=== PATIENT | female | born 1945 | race Caucasian/White ===

== ENCOUNTER → 2017-10-28 | Outpatient (CLI) | payer MEDICARE, BC ==
--- NOTE | 2017-10-28 12:43 | Diagnostic Imaging Report ---
Thyroid ultrasound History: Nontoxic single thyroid nodule Comparison: None Findings: The thyroid echotexture is normal. Vascularity is normal. The right lobe measures 4.5 x 1.5 x 1.5 cm. The left lobe measures 4.6 x 1.1 x 1.4 cm. The isthmus measures 0.4 cm. Nodules (measurements are AP, transverse, craniocaudal): Right Lobe: No cystic mass or discrete solid nodule identified. Left Lobe: In the mid left lobe, there is a 1.6 x 0.7 x 1.3 cm well circumscribed heterogeneously hypoechoic, mixed-solid cystic nodule with internal punctate calcifications and peripheral doppler flow. The nodule is wider than tall. Isthmus: No cystic mass or discrete solid nodule identified. Lymph Nodes: No cervical lymph nodes are identified. Parathyroids: Not visualized. IMPRESSION: A 1.6 cm left mid thyroid nodule is moderately suspicious (TI-RADS 4). An FNA is suggested for further evaluation. ACR glossary of thyroid rads TI-RADS 1: No focal lesion. TI-RADS 2: Not suspicious. TI-RADS 3: Mildly suspicious (recommend FNA is greater than or equal to 2.5 cm; follow-up at 1, 3, and 5 years if greater than or equal to 1.5 cm) TI-RADS 4: Moderately Suspicious (recommend FNA is greater than or equal to 1.5 cm; follow-up at 1, 2, 3, and 5 years) TI-RADS 5: Highly suspicious (recommend FNA is greater than or equal to 10 mm) TI-RADS 6: Biopsy-proven malignancy Signed by: Dr. Lydia Stern MD on 10/28/2017 12:39 PM
--- NOTE | 2017-10-28 12:53 | Diagnostic Imaging Report ---
EXAM: Renal Ultrasound INDICATION: Hematuria COMPARISON: None TECHNIQUE: Transverse and longitudinal images of the kidneys and bladder were obtained. FINDINGS: Right Kidney: Length: 10.4 x 4.7 x 4.3 cm Appearance: Normal echogenicity. Collecting system: No hydronephrosis Stones: None. Cyst/Mass: There is an anechoic cyst in the right kidney inferior pole laterally measuring up to 3.7 cm. There is an additional anechoic cyst in the right kidney mid pole medially measuring up to 1.8 cm. Left Kidney: Length: 11.3 x 5 x 5.5 cm Appearance: Normal echogenicity. Collecting system: No hydronephrosis Stones: None. Cyst/Mass: There is an anechoic cyst in the left kidney mid pole medially measuring up to 2.3 cm and an anechoic cyst in the left kidney inferior pole measuring up to 1.1 cm. Bladder: Unremarkable in appearance. Bilateral ureteral jets are visualized. IMPRESSION: Bilateral simple renal cysts. Otherwise unremarkable renal ultrasound. Signed by: Dr. Lydia Stern MD on 10/28/2017 12:50 PM
== END ==
LOC: US 09:16
PROVIDERS: ATTEND Family Medicine
DX: Z12.31 Encounter for screening mammogram for malignant neoplasm of breast (principal); E04.1 Nontoxic single thyroid nodule; R31.9 Hematuria, unspecified
CPT/HCPCS: 76536; 76770; 77067

== ENCOUNTER → 2018-02-23 | Outpatient (CLI) | payer MEDICARE, BC ==
--- NOTE | 2018-02-23 09:41 | Diagnostic Imaging Report ---
ADDENDUM #1 ADDENDUM: Dose modulation, iterative reconstruction, and/or weight based adjustment of the mA/kV was utilized to reduce the radiation dose to as low as reasonably achievable. Signed by: Dr. Lydia Stern MD on 02/23/2018 5:24 PM ORIGINAL REPORT EXAM: CT Abdomen and Pelvis WITHOUT contrast INDICATION: Hematuria COMPARISON: None. TECHNIQUE: Abdomen and pelvis were scanned utilizing a multidetector helical scanner from the lung base to the pubic symphysis without administration of IV contrast. Absence of intravenous contrast decreases sensitivity for detection of focal lesions and vascular pathology. Coronal and sagittal reformations were obtained. Routine protocol was performed. RADIATION DOSE: Total DLP: 591.2 mGy*cm COMPLICATIONS: None FINDINGS: LINES and TUBES: None. LOWER THORAX: Patchy dependent atelectasis. Right-sided fat-containing Bochdalek hernia. HEPATOBILIARY: Simple appearing hepatic cysts. Other subcentimeter hepatic hypodensities are too small to characterize, but likely represent cysts. No biliary ductal dilation. GALLBLADDER: No radio-opaque stones or sludge. No wall thickening. SPLEEN: No splenomegaly. PANCREAS: No focal masses or ductal dilatation. ADRENALS: No adrenal nodules KIDNEYS/URETERS: No hydronephrosis. No solid mass lesions. No stones. Bilateral simple appearing renal cysts, largest measuring up to 3.4 cm in the right lower pole. GI TRACT: No abnormal distention, wall thickening, or evidence of bowel obstruction. There is scattered colonic diverticulosis without CT evidence of diverticulitis. Appendix is normal. PELVIC ORGANS/BLADDER: Unremarkable. LYMPH NODES: No lymphadenopathy. VESSELS: There are extensive atherosclerotic calcifications in the aorta and branch vessels. PERITONEUM / RETROPERITONEUM: No free air or fluid. BONES/SOFT TISSUES: Degenerative changes of the visualized spine without evidence of suspicious lytic or blastic lesion. IMPRESSION: No evidence of acute abnormality in the abdomen or pelvis. No evidence of renal stone. Bilateral simple appearing renal cysts. Signed by: Dr. Lydia Stern MD on 02/23/2018 9:37 AM
== END ==
LOC: CT 08:19
PROVIDERS: ATTEND Family Medicine
DX: R31.9 Hematuria, unspecified (principal)
CPT/HCPCS: 74176

== ENCOUNTER → 2018-09-09 | Outpatient (CLI) | payer MEDICARE, BC ==
--- NOTE | 2018-09-12 09:02 | Diagnostic Imaging Report ---
#[id number] - MGDXBIL #BILATERAL DIGITAL DIAGNOSTIC MAMMOGRAM WITH CAD: 09/09/2018 Comparison is made to exam dated: 10/28/2017 mammogram - [facility]. Current study contains 6 films. There are scattered fibroglandular elements in both breasts. Current study was also evaluated with a Computer Aided Detection (CAD) system. There are benign calcifications in both breasts. There is a stable popcorn calcification in the right breast. There are post operative findings in the right breast with a scar marker present and clips in the axilla. No significant masses, calcifications, or other findings are seen in either breast. IMPRESSION: BENIGN There is no mammographic evidence of malignancy. A 1 year screening mammogram is recommended. The patient will be notified by letter of the results. JULIETTE SYKES M.D. ct/:09/09/2018 11:10:20 Timber Estimator: Nazia BERTRAND(Tayo)(Kyleigh), [facility] letter sent: Normal Exam Mammogram BI-RADS: 2 Benign
== END ==
LOC: MAMMO 09:57
PROVIDERS: ATTEND Family Medicine
DX: Z85.3 Personal history of malignant neoplasm of breast (principal)
CPT/HCPCS: 77066

== ENCOUNTER 2018-09-13 10:16 | Emergency (ER) | payer MEDICARE, BC ==
[~2018-09-13] VITALS: Ht 160 cm; Wt 75.3 kg
--- OUTSIDE RECORDS SUMMARY | 2018-09-13 10:18 | XMS REPORT ---
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 Allergies, Adverse Reactions, Alerts This patient has no known allergies or adverse reactions. Medications This patient has no known medications. Results Test Description Test Time Test Comments Text Results Atomic Results Result Comments MAMMOGRAPHY DIGITAL DX BILAT 2018-09-09 10:59:00 [place] [address] Patient Name: EDELMIRA MANRIQUEZ MR #: [id number] : 1945 Age/Sex: 73/F Req #: [id number] Adm Physician: Ordered by: NATHANIEL SARAVIA MD Report #: [id number] Location: MAMMO Room/Bed: Procedure: [id number] MG/MAMMOGRAPHY DIGITAL DX BILAT Exam Date: 09/09/18 Exam Time: 1013 REPORT STATUS: Signed #[id number] - MGDXBIL #BILATERAL DIGITAL DIAGNOSTIC MAMMOGRAM WITH CAD: 09/09/2018 Comparison is made to exam dated: 10/28/2017 mammogram - [facility]. Current study contains 6 films. There are scattered fibroglandular elements in both breasts. Current study was also evaluated with a Computer Aided Detection (CAD) system. There are benign calcifications in both breasts. There is a stable popcorn calcification in the right breast. There are post operative findings in the right breast with a scar marker present and clips in the axilla. No significant masses, calcifications, or other findings are seen in either breast. IMPRESSION: BENIGN There is no mammographic evidence of malignancy. A 1 year screening mammogram is recommended. The patient will be notified by letter of the results. JULIETTE SYKES M.D. ct/:09/09/2018 11:10:20 Associate Director Regulatory Affairs: Nazia HERNANDEZ)(Kyleigh), [facility] letter sent: Normal Exam Mammogram BI-RADS: 2 Benign Dictated By: JULIETTE SYKES MD 111 Transcribed By: MARIO ALBERTO on 09/09/18 111 COPY TO: NATHANIEL SARAVIA MD CT ABDOMEN/PELVIS WO 2018-02-23 09:20:00 [place] [address] Patient Name: EDELMIRA MANRIQUEZ MR #: [id number] : 1945 Age/Sex: 73/F Req #: [id number] Adm Physician: Ordered by: NATHANIEL SARAVIA MD Report #: [id number] Location: CT Room/Bed: Procedure: [id number] CT/CT ABDOMEN/PELVIS WO Exam Date: 02/23/18 Exam Time: 819 REPORT STATUS: Signed ADDENDUM #1 ADDENDUM: Dose modulation, iterative reconstruction, and/or weight based adjustment of the mA/kV was utilized to reduce the radiation dose to as low as reasonably achievable. Signed by: Dr. Rosemarie Rodriguez MD on 02/23/2018 5:24 PM ORIGINAL REPORT EXAM: CT Abdomen and Pelvis WITHOUT contrast INDICATION: Hematuria COMPARISON: None. TECHNIQUE: Abdomen and pelvis were scanned utilizing a multidetector helical scanner from the lung base to the pubic symphysis without administration of IV contrast. Absence of intravenous contrast decreases sensitivity for detection of focal lesions and vascular pathology. Coronal and sagittal reformations were obtained. Routine protocol was performed. RADIATION DOSE: Total DLP: 591.2 mGy*cm COMPLICATIONS: None FINDINGS: LINES and TUBES: None. LOWER THORAX: Patchy dependent atelectasis. Right-sided fat-containing Bochdalek hernia. HEPATOBILIARY: Simple appearing hepatic cysts. Other subcentimeter hepatic hypodensities are too small to characterize, but likely represent cysts. No biliary ductal dilation. GALLBLADDER: No radio- opaque stones or sludge. No wall thickening. SPLEEN: No splenomegaly. PANCREAS: No focal masses or ductal dilatation. ADRENALS: No adrenal nodules KIDNEYS/URETERS: No hydronephrosis. No solid mass lesions. No stones. Bilateral simple appearing renal cysts, largest measuring up to 3.4 cm in the right lower pole. GI TRACT: No abnormal distention, wall thickening, or evidence of bowel obstruction. There is scattered colonic diverticulosis without CT evidence of diverticulitis. Appendix is normal. PELVIC ORGANS/BLADDER: Unremarkable. LYMPH NODES: No lymphadenopathy. VESSELS: There are extensive atherosclerotic calcifications in the aorta and branch vessels. PERITONEUM / RETROPERITONEUM: No free air or fluid. BONES/SOFT TISSUES: Degenerative changes of the visualized spine without evidence of suspicious lytic or blastic lesion. IMPRESSION: No evidence of acute abnormality in the abdomen or pelvis. No evidence of renal stone. Bilateral simple appearing renal cysts. Signed by: Dr. Rosemarie Rodriguez MD on 02/23/2018 9:37 AM Dictated By: ROSEMARIE RODRIGUEZ MD 1724 Transcribed By: KALYAN on 02/23/18 9016 COPY TO: NATHANIEL SARAVIA MD RENAL RETROPERITONEAL COMP 2017-10-28 12:46:00 [place] [address] Patient Name: EDELMIRA MANRIQUEZ MR #: [id number] : 1945 Age/Sex: 72/F Req #: [id number] [facility] Physician: Ordered by: NATHANIEL SARAVIA MD Report #: [id number] Location: Room/Bed: Procedure: US/US RENAL RETROPERITONEAL COMP Exam Date: Exam Time: REPORT STATUS: Signed EXAM: Renal Ultrasound INDICATION: Hematuria COMPARISON: None TECHNIQUE: Transverse and longitudinal images of the kidneys and bladder were obtained. FINDINGS: Right Kidney: Length: 10.4 x 4.7 x 4.3 cm Appearance: Normal echogenicity. Collecting system: No hydronephrosis Stones: None. Cyst/Mass: There is an anechoic cyst in the right kidney inferior pole laterally measuring up to 3.7 cm. There is an additional anechoic cyst in the right kidney mid pole medially measuring up to 1.8 cm. Left Kidney: Length: 11.3 x 5 x 5.5 cm Appearance: Normal echogenicity. Collecting system: No hydronephrosis Stones: None. Cyst/Mass: There is an anechoic cyst in the left kidney mid pole medially measuring up to 2.3 cm and an anechoic cyst in the left kidney inferior pole measuring up to 1.1 cm. Bladder: Unremarkable in appearance. Bilateral ureteral jets are visualized. IMPRESSION: Bilateral simple renal cysts. Otherwise unremarkable renal ultrasound. Signed by: Dr. Rosemarie Rodriguez MD on 10/28/2017 12:50 PM Dictated By: ROSEMARIE RODRIGUEZ MD 1250 Transcribed By: KALYAN on 10/28/17 1250 COPY TO: NATHANIEL SARAVIA MD THYROID 2017-10-28 12:28:00 [facility] [address] [place] [address] Patient Name: EDELMIRA MANRIQUEZ MR #: [id number] : 1945 Age/Sex: 72/F Req #: [id number] Adm Physician: Ordered by: NATHANIEL SARAVIA MD Report #: [id number] Location: US Room/Bed: Procedure: US/US THYROID Exam Date: Exam Time: REPORT STATUS: Signed Thyroid ultrasound History: Nontoxic single thyroid nodule Comparison: None Findings: The thyroid echotexture is normal. Vascularity is normal. The right lobe measures 4.5 x 1.5 x 1.5 cm. The left lobe measures 4.6 x 1.1 x 1.4 cm. The isthmus measures 0.4 cm. Nodules (measurements are AP, transverse, craniocaudal): Right Lobe: No cystic mass or discrete solid nodule identified. Left Lobe: In the mid left lobe, there is a 1.6 x 0.7 x 1.3 cm well circumscribed heterogeneously hypoechoic, mixed-solid cystic nodule with internal punctate calcifications and peripheral doppler flow. The nodule is wider than tall. Isthmus: No cystic mass or discrete solid nodule identified. Lymph Nodes: No cervical lymph nodes are identified. Parathyroids: Not visualized. IMPRESSION: A 1.6 cm left mid thyroid nodule is moderately suspicious (TI-RADS 4). An FNA is suggested for further evaluation. ACR glossary of thyroid rads TI-RADS 1: No focal lesion. TI-RADS 2: Not suspicious. TI-RADS 3: Mildly suspicious (recommend FNA is greater than or equal to 2.5 cm; follow-up at 1, 3, and 5 years if greater than or equal to 1.5 cm) TI-RADS 4: Moderately Suspicious (recommend FNA is gr eater than or equal to 1.5 cm; follow-up at 1, 2, 3, and 5 years) TI-RADS 5: Highly suspicious (recommend FNA is greater than or equal to 10 mm) TI-RADS 6: Biopsy-proven malignancy Signed by: Dr. Rosemarie Rodriguez MD on 10/28/2017 12:39 PM Dictated By: ROSEMARIE RODRIGUEZ MD 1239 Transcribed By: KALYAN on 10/28/17 1239 COPY TO: AB ANTONIO SARAVIA MD MAMMOGRAPHY DIGITAL SCR BILAT 2017-10-28 10:49:00 [place] [address] Patient Name: EDELMIRA MANRIQUEZ MR #: [id number] : 1945 Age/Sex: 72/F Req #: [id number] Adm Physician: Ordered by: NATHANIEL SARAVIA MD Report #: [id number] Location: Room/Bed: Procedure: MG/MAMMOGRAPHY DIGITAL SCR BILAT Exam Date: 10/28/17 Exam Time: 932 REPORT STATUS: Signed #[id number] - [id number] #BILATERAL DIGITAL SCREENING MAMMOGRAM WITH CAD: 10/28/2017 CLINICAL: Routine screening. No prior exams were available for comparison. Current study contains 4 films. There are scattered fibroglandular elements in both breasts. Current study was also evaluated with a Computer Aided Detection (CAD) system. There are benign calcifications in both breasts. There also is a benign popcorn calcified mass in the right breast. Additionally there are post operative findings in the right breast with a scar present and clips in the axilla. No significant masses, calcifications, or other findings are seen in either breast. IMPRESSION: BENIGN There is no mammographic evidence of malignancy. A 1 year screening mammogram is recommended. The patient will be notified by letter of the results. Daniel Noe Jr., D.O. cw/:11/11/2017 14:33:24 Associate Director Regulatory Affairs: Nazia HERNANDEZ)(Kyleigh), [facility] letter sent: Normal Exam Mammogram BI-RADS: 2 Benign Dictated By: DANIEL NOE DO 1430 Transcribed By: MARIO ALBERTO on 11/11/17 1433 COPY TO: NATHANIEL SARAVIA MD
[2018-09-13 11:05] LABS: BASOPHILS % 0.5 % (0.0-1.0); EOSINOPHILS # (AUTO) 0.1 (0.0-0.4); EOSINOPHILS % 1.5 % (0.0-6.0); HEMATOCRIT 40.8 % (34.2-44.1); HEMOGLOBIN 13.4 g/dL (12.0-16.0); LYMPHOCYTES # (AUTO) 1.7 (1.0-3.2); LYMPHOCYTES % 21.9 % (18.0-39.1); MEAN CORPUSCULAR HEMOGLOBIN 28.7 pg (28-32); MEAN CORPUSCULAR HGB CONC 32.8 g/dL (31-35); MEAN CORPUSCULAR VOLUME 87.4 fL (81-99); MONOCYTES # (AUTO) 0.9 (0.2-0.8); MONOCYTES % 11.4 % (4.4-11.3); NEUTROPHILS % 64.4 % (38.7-80.0); PLATELET COUNT 199 x10e3/uL (140-360); RED BLOOD COUNT 4.67 x10e6/uL (3.6-5.1); RED CELL DISTRIBUTION WIDTH 13.5 % (11.7-14.4)
[2018-09-13 11:18] LABS: BILIRUBIN,URINE NEGATIVE (NEGATIVE); CLARITY,URINE SL CLOUDY (CLEAR); COLOR,URINE YELLOW (YELLOW); KETONES,URINE NEGATIVE (NEGATIVE); LEUKOCYTE ESTERASE ,URINE NEGATIVE (NEGATIVE); NITRITE,URINE NEGATIVE (NEGATIVE); PROTEIN,URINE DIPSTICK NEGATIVE (NEGATIVE); URINE UROBILINOGEN 0.2 mg/dL (0.2 - 1)
[2018-09-13 11:22] LABS: INR 0.96; PROTHROMBIN TIME 13.3 seconds (11.9-14.5)
[2018-09-13 11:23] LABS: PARTIAL THROMBOPLASTIN TIME 34.3 seconds (23.8-35.5)
[2018-09-13 11:31] LABS: ALANINE AMINOTRANSFERASE 13 IU/L (0-55); ALBUMIN 3.7 g/dL (3.5-5.0); ALBUMIN/GLOBULIN RATIO 1.1 (0.8-2.0); ALKALINE PHOSPHATASE 56 IU/L (40-150); ANION GAP 13.1 mmol/L (8-16); BLOOD UREA NITROGEN 30 mg/dL (7-26); BUN/CREATININE RATIO 38 (6-25); CALCIUM 9.7 mg/dL (8.4-10.2); CARBON DIOXIDE 25 mmol/L (22-29); CHLORIDE 105 mmol/L (98-107); CREATINE KINASE 37 IU/L (29-168); CREATININE, SERUM 0.78 mg/dL (0.57-1.11); EST GLOMERULAR FILTRATION RATE > 60 ML/MIN (60-); GLUCOSE 111 mg/dL (74-118); POTASSIUM 4.1 mmol/L (3.5-5.1); SODIUM 139 mmol/L (136-145)
[2018-09-13 11:37] LABS: BACTERIA,URINE MODERATE /HPF; EPITHELIAL CELLS,URINE MODERATE /LPF; RBC,URINE 0-5 /HPF (0-5)
--- NOTE | 2018-09-13 11:38 | Diagnostic Imaging Report ---
EXAMINATION: CHEST SINGLE (PORTABLE) INDICATION: Chest pain COMPARISON: None FINDINGS: TUBES and LINES: EKG leads overlie the chest. LUNGS: The lung volumes are normal. No focal consolidation or pulmonary edema. PLEURA: No pleural effusion or pneumothorax. HEART AND MEDIASTINUM: The cardiomediastinal silhouette is normal in size and contour. BONES AND SOFT TISSUES: No acute fracture or dislocation. UPPER ABDOMEN: No free air under the diaphragm. IMPRESSION: No focal pneumonia or pulmonary edema. Signed by: Roberto Martines MD on 09/13/2018 11:34 AM
[2018-09-13 12:31] VITALS: BP 105/63
== END 2018-09-13 12:44 | disposition left against medical advice (07) ==
LOC: ER 10:16
DX: R07.89 Other chest pain (principal); I10 Essential (primary) hypertension; F41.9 Anxiety disorder, unspecified; J44.9 Chronic obstructive pulmonary disease, unspecified; Z85.3 Personal history of malignant neoplasm of breast
CPT/HCPCS: 36415; 71045; 80053; 81001; 82550; 82553; 83880; 84484; 85025; 85610; 85730; 93005; 99284

== ENCOUNTER → 2019-01-23 | Outpatient (CLI) | payer MEDICARE, BC | LOC: RAD 09:27 | PROVIDERS: ATTEND Family Medicine | DX: I10 Essential (primary) hypertension (principal); R07.9 Chest pain, unspecified | CPT/HCPCS: 93306 ==